=== PATIENT | male | born 1950 | race Caucasian/White ===

== ENCOUNTER 2024-12-28 10:05 | Outpatient (CLI) | payer MEDICARE | END 2024-12-28 10:06 | disposition home or self-care (01) | LOC: CSHWCC 10:05 | PROVIDERS: ATTEND Nurse Practitioner Family | DX: L89.312 Pressure ulcer of right buttock, stage 2 (principal); E11.622 Type 2 diabetes mellitus with other skin ulcer; L98.499 Non-pressure chronic ulcer of skin of other sites with unspecified severity | CPT/HCPCS: 97597; G0463; 99213 ==

== ENCOUNTER 2025-01-04 10:42 | Outpatient (CLI) | payer MEDICARE | END 2025-01-04 10:43 | disposition home or self-care (01) | LOC: CSHWCC 10:42 | PROVIDERS: ATTEND Nurse Practitioner Family | DX: L89.312 Pressure ulcer of right buttock, stage 2 (principal); E11.622 Type 2 diabetes mellitus with other skin ulcer; L98.499 Non-pressure chronic ulcer of skin of other sites with unspecified severity | CPT/HCPCS: 99212; G0463 ==